=== PATIENT | male | born 1975 | race Caucasian/White ===

== ENCOUNTER 2021-01-31 14:09 | Emergency (ER) | payer MEDICARE ==
[2021-01-31 14:50] LABS: HEMOGLOBIN 16.4 gm/dl (14.0-17.5); RED BLOOD COUNT 5.02 M/UL (4.20-5.50); WHITE BLOOD COUNT 9.5 K/UL (4.5-11.0)
[2021-01-31 15:10] LABS: BUN/CREATININE RATIO 11 (0-10)
[2021-01-31] MEDS ORDERED: ZOFRAN ODT 4 MG4 MG SL (17:36)
[2021-01-31] MEDS ORDERED: FLAGYL500 MG PO (17:36)
[2021-01-31] MEDS ORDERED: LEVOFLOXACIN750 MG PO (17:36)
== END 2021-01-31 18:10 | disposition home or self-care (01) ==
LOC: ER1 14:09
PROVIDERS: Emergency Medicine
DX: K52.9 Noninfective gastroenteritis and colitis, unspecified (principal); F17.200 Nicotine dependence, unspecified, uncomplicated; Z85.038 Personal history of other malignant neoplasm of large intestine
CPT/HCPCS: 80053; 81001; 83605; 83690; 85025; 85610; 85730; 96374; 96375; 99284; C9113; J2405; J7030; Q9967